=== PATIENT | male | born 1985 | race African-American/Black ===

== ENCOUNTER 2017-09-25 12:52 | Emergency (ER) | payer OTHER ==
[~2017-09-25] VITALS: Ht 185.4 cm; Wt 93.0 kg
[~2017-09-25 12:52] MED LIST: HYDR1TAB PO; NAPR-1192 PO
[2017-09-25 12:58] VITALS: BP 126/75
== END 2017-09-25 13:23 | disposition home or self-care (01) ==
LOC: ER 12:57
DX: D17.79 Benign lipomatous neoplasm of other sites (principal); F17.200 Nicotine dependence, unspecified, uncomplicated
CPT/HCPCS: 99282; 99406; A4606; Z7610

== ENCOUNTER 2018-12-26 22:06 | Emergency (ER) | payer MEDICAID, OTHER ==
[~2018-12-26] VITALS: Ht 185.4 cm; Wt 93.0 kg
[2018-12-26] MEDS ORDERED: oxyCODONE/APAP (5/325 MG) 1 UDTAB TABLET ONE (22:51)
[2018-12-26] MEDS ORDERED: IBUPROFEN 600 MG TABLET PO ONE ×2 (22:51→23:00)
[2018-12-26] MEDS ORDERED: oxyCODONE/APAP (5/325 MG) 1 UDTAB TABLET PO ONE (23:00)
--- NOTE | 2018-12-27 00:21 | NUR ---
Patient discharged to home in stable condition. Written and verbal after care instructions given. Patient verbalizes understanding of instruction.
[2018-12-27 00:23] VITALS: BP 146/112
== END 2018-12-27 00:24 | disposition home or self-care (01) ==
LOC: ER 22:09
DX: S20.212A Contusion of left front wall of thorax, initial encounter (principal); S19.80XA Other specified injuries of unspecified part of neck, initial encounter; S09.8XXA Other specified injuries of head, initial encounter; F12.90 Cannabis use, unspecified, uncomplicated; V03.99XA Pedestrian with other conveyance injured in collision with car, pick-up truck or van, unspecified whether traffic or nontraffic accident, initial encounter; Y93.89 Activity, other specified; Y92.89 Other specified places as the place of occurrence of the external cause; Y99.8 Other external cause status
CPT/HCPCS: 71100-TC